=== PATIENT | female | born 1945 | race Caucasian/White ===

== ENCOUNTER 2016-06-25 23:10 | Inpatient (IN) | payer MEDICARE, BC ==
[~2016-06-25] VITALS: Ht 167.6 cm; Wt 113.4 kg
[2016-06-26] VITALS (9 sets, daily range): BP systolic 140–173; BP diastolic 68–94
[2016-06-26] MEDS ORDERED: Gatifloxacin Opth Solution 0.5% RIGHT EYE SCH (14:00)
[2016-06-26] MEDS ORDERED: Pred Forte 1% Opth Susp 1ml RIGHT EYE ONE (14:00)
--- NOTE | 2016-06-26 16:19 | Pre-op HX & Phy Repo 2 SIG ---
DATE OF ADMISSION: 06/26/2016 PREOPERATIVE DIAGNOSIS: Phacomorphic glaucoma with cataract with lens, right eye. 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 At this stage, she complains of pain in the right eye and was found to have hypermature lens with flattening of the anterior chamber. She is admitted for removal. PAST MEDICAL HISTORY: Remarkable for COPD, diabetes type 2, seizure disorder, and lupus. Best vision at the time of admission was bare light perception in the right eye and hand motions in the left with pressures of 44 and 22. The anterior segment on the right showed a shallow chamber with corneal edema. There was a calcification in the cornea. The lens was hypermature and pushed forward. The left showed a dense cataract with a deep chamber. Fundus exam could not be obtained in either eye. An ultrasound was planned preoperatively. ASSESSMENT: Hypermature cataract with phacomorphic glaucoma, right eye. PLAN: The plan is to perform a pars plana vitrectomy with posterior fragmentation of the lens and removal. No implant will be done secondary to the history of no light perception. Please refer to the attached notes from [facility] for H and P and laboratories. Trenton Mendez M.D. DR: HERMINIO JOB#: [id number] CC:
[2016-06-26] MEDS ORDERED: DEPAKOTE250 MG PO (16:40)
[2016-06-26] MEDS ORDERED: SYNTHROID100 MCG ORAL (16:40)
[2016-06-26] MEDS ORDERED: Norco 5mg/325mg tab ORAL PRN (17:00)
[2016-06-26] MEDS ORDERED: Norco 10mg/325mg tab ORAL PRN (17:00)
[2016-06-26] MEDS ORDERED: BSS 15ml BTL ONE (17:10)
[2016-06-26] MEDS ORDERED: EPINEPHrine 1mg/1ml Amp ONE (17:10)
[2016-06-26] MEDS ORDERED: BSS 500ml btl ONE ×3 (17:10→19:35)
[2016-06-26] MEDS ORDERED: Kenalog-40 1ml Vial ONE (17:13)
[2016-06-26] MEDS ORDERED: Pred Forte 1% Opth Susp 1ml ONE (17:14)
[2016-06-26] MEDS ORDERED: Tetracaine 0.5% Opth Soln ONE (17:14)
[2016-06-26] MEDS ORDERED: Maxitrol Opth Oint 3.5gm ONE (17:14)
[2016-06-26] MEDS ORDERED: Dexamethasone 4mg/ml vial ONE (17:14)
[2016-06-26] MEDS ORDERED: Lidocaine 2% MPF 5ml Vial INJ ONE (17:15)
[2016-06-26] MEDS ORDERED: Kenalog-10 5ml Inj ONE (17:15)
[2016-06-26] MEDS ORDERED: Povidone-Iodine 5% opth solution ONE (17:15)
[2016-06-26] MEDS ORDERED: Triamcinolone 40mg/ml PF Vial ONE (17:16)
[2016-06-26] MEDS ORDERED: Bupivacaine 0.75% 30ml vial INJ ONE (17:16)
[2016-06-26] MEDS: Flurbiprofen 0.03% Opth Sol 2.5ml RIGHT EYE SCH ×2 (17:16→21:00)
[2016-06-26] MEDS ORDERED: Sodium Hyaluronate 10 mg/ml 0.85ml ONE (17:16)
[2016-06-26] MEDS: Cyclopentolate 1% Opth Sol RIGHT EYE SCH ×3 (17:19→21:00)
[2016-06-26] MEDS: Gentamicin 0.3% Opth Soln 5ml RIGHT EYE SCH ×3 (17:26→21:00)
[2016-06-26] MEDS: Phenylephrine 2.5% Op Soln RIGHT EYE SCH ×3 (17:29→21:00)
--- NOTE | 2016-06-26 17:33 | Anethesia Preoperative Eval ---
Anesthesia Pre-op PMH/ROS General Date of Evaluation: June 26, 2016 Anesthesiologist: Justo ASA Score: ASA 3 - E Mallampati Score Class I : Soft palate, uvula, fauces, pillars visible Class II: Soft palate, uvula, fauces visible Class III: Soft palate, base of uvula visible Class IV: Only hard plate visible Mallampati Classification: Class III Surgeon: Vanessa Diagnosis: Right eye closed angle glaucoma Surgical Procedure: Right eye vitrectomy Anesthesia History: none Family History: no anesthesia problems Allergies: Coded Allergies: ALENDRONATE SODIUM (Verified Allergy, Unknown, 06/26/16) ASPIRIN (Verified Allergy, Unknown, 06/26/16) CELECOXIB (Verified Allergy, Unknown, 06/26/16) CETIRIZINE (Verified Allergy, Unknown, 06/26/16) DIAZEPAM (Verified Allergy, Unknown, 06/26/16) IODINE (Verified Allergy, Unknown, 06/26/16) MECLIZINE (Verified Allergy, Unknown, 06/26/16) MELOXICAM (Verified Allergy, Unknown, 06/26/16) MOXIFLOXACIN (Verified Allergy, Unknown, 06/26/16) SIMVASTATIN (Verified Allergy, Unknown, 06/26/16) Medications: see eMAR Past Medical History Cardiovascular: Reports: HTN, other - PVD; h/o atypical chest pian, Denies: CAD, UT, arrhythmia, valve dz Pulmonary: Reports: COPD, Denies: KEVON, asthma, other Gastrointestinal/Genitourinary: Denies: CRI, ESRD, GERD, other Neurologic/Psychiatric: Reports: CVA, depression/anxiety, other - seizures- petit mal; on depakote, last dose given en route to OR, Denies: TIA, dementia Endocrine: Reports: DM, hypothyroidism, Denies: other, steroids HEENT: Reports: cataract (L), cataract (R), glaucoma - right, Denies: APACHE (L), APACHE (R), other Hematology/Immune: Reports: 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 Exam Physician Exam Last Vital Signs Date Time Temp Pulse Resp B/P Pulse Ox O2 Delivery O2 Flow Rate FiO2 06/26/16 15:39 97.7 65 20 153/78 97 Room Air Constitutional: NAD Cardiovascular: RRR Respiratory: CTA Airway Exam Mallampati Score: Class III MO: limited ROM: limited Teeth: intact Anesthesia Pre-op A/P Labs see chart Studies Pre-op Studies: EKG - NSR Risk Assessment & Plan Assessment: ASA IIIE Plan: GA Status Change Before Surgery: No Pre-Antibiotics Drug: N/A TERE MAYBERRY M.D. June 26, 2016 17:33
--- NOTE | 2016-06-26 17:42 | Pre-Procedure Note/Attestation ---
Pre-Procedure Note/Attestation Complete Prior to Procedure Planned Procedure: right Procedure Narrative: PPV, fragmentation and removal of cataractous lens, Kenalog injection, possible endolaser R eye. Indications for Procedure Pre-Operative Diagnosis: Phacomorphic glaucoma, Right eye Attestation I attest that I discussed the nature of the procedure; its benefits; risks and complications; and alternatives (and the risks and benefits of such alternatives ), prior to the procedure, with the patient (or the patient's legal printing sales representative). I attest that, if there was a reasonable possibility of needing a blood transfusion, the patient (or the patient's legal printing sales representative) was given the [place] Department [employer] Health Services standardized written summary, pursuant to the [place] Blood Safety Act ([place] Health and Safety Code # 1645, as amended). I attest that I re-evaluated the patient just prior to the surgery and that there has been no change in the patient's H&P, except as documented below: ALBA QUIROGA June 26, 2016 17:42
[2016-06-26] MEDS ORDERED: LR 1000ml 1,000 ML IVLG SCH (17:43)
[2016-06-26] MEDS ORDERED: fentaNYL 100 mcg/2 mL IV PRN (17:45)
[2016-06-26] MEDS ORDERED: Sterile Water Irrig 1000ml IRRIG ONE (17:50)
[2016-06-26] MEDS ORDERED: Lidocaine 1% MPF 10mg/ml 5ml ONE (17:50)
[2016-06-26] MEDS ORDERED: NS Irrig 1000ml ONE (17:50)
[2016-06-26] MEDS ORDERED: Propofol 10mg/ml 20ml IV ONE (17:50)
[2016-06-26] MEDS ORDERED: Midazolam 2mg/2ml Inj ONE (17:50)
[2016-06-26] MEDS ORDERED: fentaNYL 100 mcg/2 mL IV ONE (17:50)
[2016-06-26] MEDS ORDERED: LR 1000ml ONE (17:50)
[2016-06-26] MEDS ORDERED: VESICARE10 MG ORAL (18:21)
[2016-06-26] MEDS ORDERED: TYLENOL EXTRA500 MG ORAL (18:41)
[2016-06-26] MEDS ORDERED: FOLGARD TABLET1 EAC1 PO (18:41)
[2016-06-26] MEDS ORDERED: VITAMIN D400 INTLU ORAL (18:41)
[2016-06-26] MEDS ORDERED: METFORMIN HCL500 M1 ORAL (18:41)
[2016-06-26] MEDS ORDERED: PRAVASTATIN SOD20 M1 ORAL (18:41)
--- NOTE | 2016-06-26 20:23 | Brief Operative Note ---
Immediate Post Operative Note Operative Note Chief Complaint: Pain R eye Pre-op Diagnosis: Phacomorphic glaucoma, Right eye Procedure: PPV, framentation of morgagnian cataract, peripheral iridotomy, endolaser 182 spots, Kenalog injection 1mg, R eye. Post-op Diagnosis: same as pre-op Surgeon: tatianna Leasing Coordinator: yodit Anesthesiologist: spring Anesthesia: general Specimen: none Complications: none Condition: stable Estimated Blood Loss: none Drains: none Implant(s) used?: No ALBA QUIROGA June 26, 2016 20:23
--- NOTE | 2016-06-26 20:25 | Immediate Post-Op Evaluation ---
Immediate Post-Op Evalulation Immediate Post-Op Evalulation Procedure: Right eye vitrectomy Date of Evaluation: June 26, 2016 Time of Evaluation: 20:27 IV Fluids: 200 Blood Products: 0 Estimated Blood Loss: 0 Urinary Output: 0 Blood Pressure Systolic: 173 Blood Pressure Diastolic: 94 Pulse Rate: 70 Respiratory Rate: 16 O2 Sat by Pulse Oximetry: 100 Temperature (Fahrenheit): 97 Pain Score (1-10): 0 Nausea: No Vomiting: No Complications 0 Patient Status: awake, reacts, patent, none Hydration Status: adequate Drug: N/A TERE MAYBERRY M.D. June 26, 2016 20:25
[2016-06-26] MEDS: NovoLOG Insulin Flexpen SUBQ SCH (21:45)
[2016-06-26] MEDS ORDERED: DEPAKOTE 250 MG ORAL SCH (23:00)
--- NOTE | 2016-06-27 02:08 | Operative Note - Dictated ---
DATE OF OPERATION: 06/26/2016 PREOPERATIVE DIAGNOSIS: Phacomorphic glaucoma with Morgagni cataract, right eye. POSTOPERATIVE DIAGNOSIS: Phacomorphic glaucoma with Morgagni cataract, right eye. PROCEDURES: 1. Pars plana vitrectomy. 2. Fragmentation of Morgagni cataract. 3. Endolaser. 4. Peripheral iridotomy. 5. Kenalog injection, right eye. SURGEON: Trenton Mendez M.D. BELL STAFF: Celso Faust M.D. ANESTHESIA: LMA general. ANESTHESIOLOGIST: . JUSTIFICATION FOR SURGERY: This is a 70-year-old lady with a long history of Klor-Con ocular toxicity, developed a severe pain and was found to have a swollen Morgagni cataract that had blocked to the anterior chamber and caused elevated pressure. She was admitted for removal. BRIEF NOTE: The patient was brought to the operative room, placed on operating room table in supine position. After a time-out was performed and agreed upon by the staff, general LMA anesthesia was induced by Dr. Mora. Retrobulbar and Van Lint blocks were then given in standard way to limit the need for intraoperative and postoperative anesthetic. She was then prepped and draped in normal manner. A lid speculum inserted into the right eye. Examination revealed the lens to be forced anterior with pupillary block and touching the corneal endothelium. Using a 23-gauge trocar system, cannulas were placed in all except the inferonasal quadrant with a cannula in the supratemporal quadrant being placed behind a cutdown through conjunctiva and Tenon's capsule. These were all 4 mm apart. The eye was softened through the valves of the cannulas and a paracentesis was then formed at the 2 o'clock position followed by instillation of Healon. The lens complex was noted to recede posteriorly with no adhesions between iris and cornea. After this maneuver, a limited vitrectomy was performed to allow access to the lens with the fragmatome. The supratemporal cannula was then removed and the wound enlarged to 20-gauge size. The fragmatome was then introduced into the eye and gentle fragmentation was performed. A portion of the lens fell posteriorly. The vitrectomy was then completed leaving a small peripheral vitreous skirt and fragmentation was continued until all lens particles were removed. Kenalog was used to aid in visualization of the vitreous. A small hemorrhage from a retinal vessel along the supratemporal arcade was noted. Endolaser was used to laser around this lesion, although no breaks were seen. A total of 182 spots were applied. Scleral depression showed no peripheral breaks, tears, or detachment. It should be noted, however, that there was a diffuse bone spicule pigmentation of the entire pigment epithelium, pallor of the optic nerve, and sclerosis of the vessels. At this juncture, a peripheral iridotomy was cut with the vitreous cutter at the 10 o'clock position. The pupil was noted to be nicely rounded. The instruments were all removed from the eye and the supratemporal sclerotomy was closed with interrupted sutures of 8-0 Vicryl as well as the overlying conjunctiva and tenons secured. The remaining sclerotomies were similarly closed with 8-0 Vicryl. Subconjunctival Decadron and gentamicin were then injected and topical prednisolone and gentamicin drops were instilled. The eye was patched and shielded. The patient was taken to recovery in excellent condition. No complications. Trenton Mendez M.D. DR: Clyde JOB#: [id number] CC: Trenton Mendez M.D.; Fax#: [phone] Hopp, M.D. ; Fax#: [phone]
[2016-06-27] MEDS: NovoLOG Insulin Flexpen SUBQ SCH ×4 (06:30→21:00)
[2016-06-27 08:40] VITALS: BP 138/74
--- NOTE | 2016-06-27 09:25 | General Progress Note ---
Progress Note Progress Note POD #1 S: No pain O: Vision...remains Bare LP OD. LP OS Penlight exam. Central corneal edema. Chamber deep without evidence of infection. Tactile tension soft to normal. Fundus shows media haze. Retinal attached. A Stable post op. P. Will start on Gentamycin and Pred Forte tid and qid OD. OK for discharge To see Dr Faust in followup next week. Kamari Quiroga .MD. ALBA QUIROGA June 27, 2016 09:25
[2016-06-27] MEDS: DEPAKOTE 250 MG ORAL SCH ×3 (10:13→17:58)
[2016-06-27 12:20] VITALS: BP 145/76
[2016-06-27 12:55] LABS: INR 1.2 (0.9-1.1); PROTHROMBIN TIME 12.7 SEC (9.30-11.50)
[2016-06-27] MEDS: Gentamicin 0.3% Opth Soln 5ml RIGHT EYE SCH ×2 (13:14→17:58)
[2016-06-27] MEDS: Pred Forte 1% Opth Susp 1ml RIGHT EYE SCH ×3 (13:28→21:11)
--- NOTE | 2016-06-27 14:57 | Consultation ---
GERMAINE TOLEDO N.P. 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 Trenton Mendez and Dr. Faust from 06/26/16. Review of Systems Otherwise negative except as per HPI, including: General: Denies fever, chills, night sweats or unintended weight loss. Resp: Denies cough, wheezing, shortness of breath. Cardiac: Denies chest pain, palpitations, orthopnea, paroxysmal nocturnal dyspnea. 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 EOMI, PERRL, anicteric , oropharynx clear, mucous membranes moist Neck: Supple, no lymphdenopathy, Lungs: Clear to auscultation bilaterally. No wheezes/rhonchi/rales. No accessory muscle usage. Cardiac: Regular rate and rhythm. No murmurs, rubs or gallops. Abdomen: Soft, non-tender, non-distended. Normo-active bowel sounds. No organomegaly or masses noted Extremities: No clubbing, cyanosis, edema. 2+ DP pulses. Neuro: Alert and oriented. Grossly non-focal. Conversant, moving all extremities. No overt cerebellar signs / incoordination. Skin: No rashes or lesions noted. =Laboratory Tests Test 06/27/16 12:21 Prothrombin Time 12.7 SEC (9.30-11.50) H Prothromb Time International Ratio 1.2 (0.9-1.1) H Activated Partial Thromboplast Time 27 SEC (23-33) ASSESSMENT/PLAN: 70 y/o female transferred from [facility] with Hypermature cataract with phacomorphic glaucoma, right eye s/p pars plana vitrectomy with posterior fragmentation of the lens and removal by Dr. Rosas and Christianne on 06/26/16. - healing well pos-operatively -Gentamycin and Pred Forte tid and qid OD. . -restarted on Coumadin - Home meds continued - Dispo pending ability of caregiver to come to place eyedrops as patient is blind - Destination and Transport: caregiver vs ambulance services given post-op condition in setting of blindness - Med Rec performed - Estimated Discharge: either tomorrow or Wednesday pending dispo-planning - Follow-up: /Dr. Mendez next week AGUS CAVAZOS 06/29/16 1450: Consult Note Assessment/Plan I saw and examined the patient, reviewed the case in detail, reviewed radiology and EKG if applicable, in addition reviewing the laboratory data and microbiology. I agree with the history, physical examination findings, assessment and plan of care as outlined above by the Nurse Practitioner with any additions or modifications noted. GERMAINE TOLEDO N.P. June 27, 2016 14:57 AGUS CAVAZOS June 29, 2016 14:50
[2016-06-27 16:56] VITALS: BP 145/84
[2016-06-27] MEDS ORDERED: Warfarin Sodium 4mg PO ONE (17:00)
--- NOTE | 2016-06-27 17:30 | 48 Hour Post Anesthesia Eval ---
Post Anesthesia Evaluation Procedure: Right eye vitrectomy Date of Evaluation: June 27, 2016 Time of Evaluation: 15:55 Blood Pressure Systolic: 145 0: 76 Pulse Rate: 79 Respiratory Rate: 20 Temperature (Fahrenheit): 98.4 O2 Sat by Pulse Oximetry: 94 Airway: patent Nausea: No Vomiting: No Pain Intensity: 1 Hydration Status: adequate Cardiopulmonary Status: at baseline Mental Status/LOC: patient returned to baseline Post-Anesthesia Complications: 0 Follow-up care needed: N/A - further care as per primar team TERE MAYBERRY M.D. June 27, 2016 17:30
[2016-06-27 20:00] VITALS: BP 152/81
[2016-06-28 04:00] VITALS: BP 148/80
[2016-06-28] MEDS: NovoLOG Insulin Flexpen SUBQ SCH ×2 (06:30→11:30)
[2016-06-28 08:45] VITALS: BP 171/79
[2016-06-28] MEDS: Pred Forte 1% Opth Susp 1ml RIGHT EYE SCH (09:30)
[2016-06-28] MEDS: Gentamicin 0.3% Opth Soln 5ml RIGHT EYE SCH (09:30)
[2016-06-28] MEDS: DEPAKOTE 250 MG ORAL SCH (09:30)
[2016-06-28] MEDS ORDERED: COUMADIN6 MG ORAL (11:52)
[2016-06-28] MEDS ORDERED: GARAMYCIN 0.3%1 DROP RIGHT EYE (11:54)
[2016-06-28] MEDS ORDERED: PRED FORTE1 ML RIGHT EYE (11:57)
[2016-06-28 12:27] VITALS: BP 158/71
[2016-06-28] MEDS ORDERED: Warfarin Sodium 3mg ORAL ONE (17:00)
--- NOTE | 2016-06-28 23:48 | Discharge Summary ---
GERMAINE TOLEDO NShakirP. 06/28/16 2348: Discharge Summary Hospital Course Date of Admission June 26, 2016 at 14:15 Date of Discharge June 28, 2016 at 13:28 Admitting Diagnosis glaucoma, need for Vitrectomy with lensectomy of right eye Reason for Hospitalization: Vitrectomy with lensectomy of right eye [facility] Tessy Olvera is a 70 year old female who was admitted on June 26, 2016 at 14: 15 for Vitrectomy With Lensectomy Right Eye Consultations Dr. Rosas/ Dr. Faust (Opt) Procedures Vitrectomy with lensectomy of right eye Hospital Course 70 y/o female transferred from [facility] with Hypermature cataract with phacomorphic glaucoma, right eye s/p pars plana vitrectomy with posterior fragmentation of the lens and removal by Dr. Rosas and Christianne on 06/26/16. Patient healed well post-operatively, started on Gentamycin and pred-forti drops,then was cleared by Ophthalmology to go home with follow-up with Dr. Faust/Dr. Mendez next week. Due to her blindness, ambulances services were provided for safe discharge to home, where neighbor and caregiver would be waiting. At time of discharge, patient very alert and eager to go home. She is aware of need to seek emergency services should new problems arise. Discharge Condition Upon Discharge: stable Discharge Disposition Patient was discharged to Home with [facility] Discharge Diagnoses: (1) Glaucoma, angle-closure (2) DVT (deep venous thrombosis) (3) Systemic lupus erythematosus (SLE) affecting , antepartum AGUS CAVAZOS 06/29/16 1450: Discharge Summary Discharge Discharge Disposition I saw and examined the patient, reviewed the case in detail, reviewed radiology and EKG if applicable, in addition reviewing the laboratory data and microbiology. I agree with the history, physical examination findings, assessment and plan of care as outlined above by the Nurse Practitioner with any additions or modifications noted. Discharge Diagnoses: GERMAINE TOLEDO N.P. June 28, 2016 23:48 AGUS CAVAZOS June 29, 2016 14:50
== END 2016-06-28 13:28 | disposition home health service (06) | DRG 117 ==
LOC: 3E 06-26 14:15
PROC: 08B43ZZ Excision of Right Vitreous, Percutaneous Approach (ICD-10-PCS; principal; 2016-06-26 17:00)
PROC: 08DJ3ZZ Extraction of Right Lens, Percutaneous Approach (ICD-10-PCS; principal; 2016-06-26 17:00)
PROC: 08C Eye, Extirpation (ICD-10-PCS; principal; 2016-06-26 17:00)
DX: H40.51X0 Glaucoma secondary to other eye disorders, right eye, stage unspecified (principal); J44.9 Chronic obstructive pulmonary disease, unspecified; E11.9 Type 2 diabetes mellitus without complications; M32.9 Systemic lupus erythematosus, unspecified; H25.21 Age-related cataract, morgagnian type, right eye; H54.0 Blindness, both eyes; T37.2X Poisoning by, adverse effect of and underdosing of antimalarials and drugs acting on other blood protozoa; Z86.718 Personal history of other venous thrombosis and embolism; Z86.73 Personal history of transient ischemic attack (TIA), and cerebral infarction without residual deficits; Z86.711 Personal history of pulmonary embolism; Z79.01 Long term (current) use of anticoagulants; G40.909 Epilepsy, unspecified, not intractable, without status epilepticus
CPT/HCPCS: 36415; 82962; 85610; 85730; 94003; 94150; J1815; J2250; J3300